=== PATIENT | male | born 1955 | race Hispanic/Latino ===

== ENCOUNTER → 2018-11-09 | Outpatient (CLI) | payer OTHER ==
[~2018-11-09] MED LIST: IOPAMIDOL 370 MG/ML 200 ML INFUS..BTL INJ ONE; SODIUM CHLORIDE 0.9% 50ML 50 ML ONE
[2018-11-09 14:23] LABS: BLOOD UREA NITROGEN 17 mg/dL (7-26); BUN/CREATININE RATIO 21 (6-25); CREATININE, SERUM 0.82 mg/dL (0.72-1.25); EST GLOMERULAR FILTRATION RATE > 60 ML/MIN (60-)
--- NOTE | 2018-11-09 16:17 | Diagnostic Imaging Report ---
Exam: CT abdomen and pelvis Clinical history: Neoplasm of the right kidney Technique: Helical images of the abdomen and pelvis were obtained before and after IV contrast administration using the renal mass protocol Findings: Mild bibasilar atelectasis is noted. There is no evidence of pleural effusion. The cardiac size is within normal limits. A small bleb is noted in the right lung base. The liver, spleen, pancreas, gallbladder, adrenal glands, and left kidney are unremarkable. In the upper pole right kidney, a 2.3 x 2.3 cm lesion is noted. It is exophytic and shows focal enhancement along the lateral wall. This is consistent with history of renal neoplasm. There is no evidence of lymphadenopathy or vascular extension of the lesion. The small and large bowels are normal in caliber without evidence of obstruction. Focal mild thickening of the left anterior lateral wall is visualized with associated stranding. Clinical correlation is recommended to rule out UTI. Otherwise, cystoscopy is recommended to rule out neoplasm. There is no evidence of lymphadenopathy or free fluid. The aorta and IVC are normal in caliber. No suspicious osteoblastic or lytic lesions are noted. Impression: 1. 2.3 cm right renal mass with asymmetric focal enhancement of the lateral wall. This is worrisome for neoplasm. 2. Mild asymmetrical thickening of the left anterior bladder wall. Associated stranding is also noted. This may represent focal inflammatory changes, however, neoplasm cannot be excluded. Signed by: Dr. Ronan Ibrahim MD on 11/09/2018 4:14 PM
== END ==
LOC: CT 13:29
PROVIDERS: ATTEND Urology
DX: C64.1 Malignant neoplasm of right kidney, except renal pelvis (principal)
CPT/HCPCS: 36415; 74178; 82565; 84520; Q9967

== ENCOUNTER → 2018-12-15 | Day surgery (SDC) | payer OTHER ==
[2018-12-13 13:30] LABS: BASOPHILS % 0.4 % (0.0-1.0); EOSINOPHILS # (AUTO) 0.2 (0.0-0.4); EOSINOPHILS % 3.5 % (0.0-6.0); HEMATOCRIT 41.3 % (38.2-49.6); LYMPHOCYTES # (AUTO) 0.8 (1.0-3.2); MEAN CORPUSCULAR HEMOGLOBIN 29.2 pg (28-32); MEAN CORPUSCULAR HGB CONC 33.9 g/dL (31-35); MONOCYTES # (AUTO) 0.6 (0.2-0.8); MONOCYTES % 9.3 % (4.4-11.3); NEUTROPHILS # (AUTO) 5.1 (2.1-6.9); NEUTROPHILS % 75.4 % (38.7-80.0); PLATELET COUNT 260 x10e3/uL (140-360); RED CELL DISTRIBUTION WIDTH 13.1 % (11.7-14.4)
[2018-12-13 13:52] LABS: ALANINE AMINOTRANSFERASE 24 IU/L (0-55); ALBUMIN 3.6 g/dL (3.5-5.0); ALKALINE PHOSPHATASE 71 IU/L (40-150); ANION GAP 13.1 mmol/L (8-16); BLOOD UREA NITROGEN 22 mg/dL (7-26); BUN/CREATININE RATIO 28 (6-25); CALCIUM 9.8 mg/dL (8.4-10.2); CARBON DIOXIDE 25 mmol/L (22-29); CHLORIDE 106 mmol/L (98-107); EST GLOMERULAR FILTRATION RATE > 60 ML/MIN (60-); GLUCOSE 97 mg/dL (74-118); POTASSIUM 4.1 mmol/L (3.5-5.1); SODIUM 140 mmol/L (136-145)
[~2018-12-15] MED LIST changes: +AMLODIPINE BESYL5 MG PO; +ATORVASTATIN CA20 MG PO; +B&O 60MG R/S 60 MG SUPP PR ONE; +CEFTRIAXONE SOD 1 GM/NS 50 ML 50 ML IV ONE; +CENTRUM SILVER1 EAC3 PO; +DEXAMETHASONE SOD PHOS INJ 4 MG/ML VIAL ONE; +FENTANYL CITRATE/PF 100MCG/2 ML INJ ONE; +IOPAMIDOL 300MG/ML 50ML INFUS..BTL IV ONE; -IOPAMIDOL 370 MG/ML 200 ML INFUS..BTL INJ ONE; +LIDOCAINE HCL 2% LOCAL INJ 5 ML SDV VIAL INJ ONE; +LOSARTAN POTAS100 MG PO; +MIDAZOLAM HCL 2 MG/2 ML VIAL ONE; +ONDANSETRON HCL INJ 2MG/ML 2ML 2 MG/ML VIAL ONE; +PROPOFOL IV EMULSION 10 MG/ML 20 ML VIAL ONE; +SEVOFLURANE INHAL SOLN 250 ML PEN BTL ONE; -SODIUM CHLORIDE 0.9% 50ML 50 ML ONE
--- OUTSIDE RECORDS SUMMARY | 2018-12-15 09:34 | XMS REPORT ---
Author [facility] Address Unknown Phone Unavailable Care Team Providers Care Addressing Machine Operator Name Role Phone ADONIS NIELSEN Unavailable Unavailable Problems This patient has no known problems. Allergies, Adverse Reactions, Alerts This patient has no known allergies or adverse reactions. Medications This patient has no known medications. Results Test Description Test Time Test Comments Text Results Atomic Results Result Comments CT ABDOMEN/PELVIS WOW 2018-11-09 16:08:00 [facility] [address] [place] [address] Patient Name: JE HAQUE MR #: [id number] : 1955 Age/Sex: 62/M Req #: [id number] Adm Physician: Ordered by: ADONIS NIELSEN MD Report #: [id number] Location: CT Room/Bed: Procedure: [id number] CT/CT ABDOMEN/PELVIS WOW Exam Date: 11/09/18 Exam Time: 1503 REPORT STATUS: Signed Exam: CT abdomen and pelvis Clinical history: Neop lasm of the right kidney Technique: Helical images of the abdomen and pelvis were obtained before and after IV contrast administration using the renal mass protocol Findings: Mild bibasilar atelectasis is noted. There is no evidence of pleural effusion. The cardiac size is within normal limits. A small bleb is noted in the right lung base. The liver, spleen, pancreas, gallbladder, adrenal glands, and left kidney are unremarkable. In the upper pole right kidney, a 2.3 x 2.3 cm lesion is noted. It is exophytic and shows focal enhancement along the lateral wall. This is consistent with history of renal neoplasm. There is no evidence of lymphadenopathy or vascular extension of the lesion. The small and large bowels are normal in caliber without evidence of obstruction. Focal mild thickening of the left anterior lateral wall is visualized with associated stranding. Clinical correlation is recommended to rule out UTI. Otherwise, cystoscopy is recommended to rule out neoplasm. There is no evidence of lymphadenopathy or free fluid. The aorta and IVC are normal in caliber. No suspicious osteoblastic or lytic lesions are noted. Impression: 1. 2.3 cm right renal mass with asymmetric focal enhancement of the lateral wall. This is worrisome for neoplasm. 2. Mild asymmetrical thickening of the left anterior bladder wall. Associated st randing is also noted. This may represent focal inflammatory changes, however, neoplasm cannot be excluded. Signed by: Dr. Ronan Ibrahim MD on 11/09/2018 4:14 PM Dictated By: RAMILA IBRAHIM MD 1615 Transcribed By: PÉREZ on 11/09/18 1614 COPY TO: ADONIS NIELSEN MD
[2018-12-15 13:13] VITALS: BP 149/77
--- NOTE | 2019-02-25 06:23 | Operative Report ---
DATE OF PROCEDURE: 12/15/2018 SURGEON: Sher Dumont MD PREOPERATIVE DIAGNOSES: 1. Bladder cancer. 2. Hematuria. POSTOPERATIVE DIAGNOSES: 1. Bladder cancer. 2. Hematuria. 3. Urethral stricture disease. OPERATION PERFORMED: 1. Cystourethroscopy with calibration and dilation of urethral stricture disease (separate procedure performed for the stricture disease). 2. Cystourethroscopy with bilateral ureteral catheterization and retrograde ureteropyelography (separate procedure performed for the hematuria). 3. Interpretation of retrograde ureteropyelography. 4. Supervision of fluoroscopy, no radiologist present. 5. Cystourethroscopy with directed bladder biopsies of the posterior and right lateral bladder lesions (separate procedure performed for the bladder cancer). ANESTHESIA: General. COMPLICATIONS: None. CLINICAL SUMMARY: Puneet Guadalupe is a complicated 62-year-old man. He underwent transurethral resection of prostate in September 2015. The patient subsequently was diagnosed abroad with transitional cell carcinoma. He underwent transurethral resection of bladder tumor in 2017. Upon presentation to the [facility], the patient without any urological input underwent radiotherapy and chemotherapy for his bladder cancer. He also without any urological input was diagnosed as having renal cell carcinoma of the right renal mass, underwent cryotherapy by Interventional Radiology in June 2018. Eventually, the patient was sent for urological re-evaluation following all these interventions without any urological input. The patient is brought to the operating room for the above procedures. He is aware of the risks of bleeding, infection, injury to adjacent structures, need for additional procedures and elected to proceed. OPERATIVE PROCEDURE IN DETAIL: Informed consent verified. Puneet Guadalupe was properly identified, taken to the operating room, placed on the cystoscopy table in supine position. Anesthesia was uneventfully begun. The patient was then carefully gently repositioned in the dorsal lithotomy position with all pressure points well padded. His genitalia were prepared and draped in usual sterile fashion. A 21-Haitian cystoscope sheath with visual obturator in place was atraumatically inserted into the patient's urethra. It was guided into the urethral meatus and just beyond the urethral meatus, at the fossa navicularis, there was some narrowing. This stricture was dilated to 21-Haitian in size utilizing visual obturator and cystoscope sheath. Urethra was otherwise unremarkable. Sphincteric region was normal. Prostate bed was significant for transurethral resection of the prostate with some caving in of residual prostatic tissue causing mild obstruction especially at the apical region. The bladder neck was opened, went to the patient's bladder and drained it. Panendoscopy of the bladder revealed some erythema at the posterior wall as well as at the right lateral wall, thus we utilized cold cup biopsy forceps to biopsy these regions and all spots of erythema that we saw on the bladder were then fulgurated with a Bugbee electrode. An 8-Haitian catheter was used to cannulate each ureter and retrograde ureteral pyelograms were performed. Interpretation of retrograde ureteropyelography. Contrast was instilled in retrograde fashion bilaterally. There were no tumors. There were no stones. There were no diverticula. I really could not appreciate well the region of the right renal lesion. This underwent cryotherapy as this did not seem to affect the collecting system significantly. The patient's bladder was drained. Cystoscope was withdrawn. A belladonna and opium suppository was placed and revealing 40 g prostate that was smooth, nonfluctuant without any nodules. The patient was then uneventfully reversed from anesthesia and taken to recovery room in stable condition. There were no complications of the procedure. He tolerated the procedure well. Plans will be to schedule a CT scan of the abdomen and pelvis with and without contrast per renal mass protocol and in addition to that, proceed with CT-guided biopsy of the right renal mass. The patient and his family are concerned that there may be residual cancer following this cryotherapy procedure. Ongoing urological followup is a must. Sher Dumont MD [place]/MODL /[id number]
== END | disposition home or self-care (01) ==
LOC: OR 09:28
PROVIDERS: ATTEND Urology
DX: C67.9 Malignant neoplasm of bladder, unspecified (principal); Z01.812 Encounter for preprocedural laboratory examination; I10 Essential (primary) hypertension; E78.5 Hyperlipidemia, unspecified; N35.911 Unspecified urethral stricture, male, meatal; N39.41 Urge incontinence; Z87.891 Personal history of nicotine dependence; Z80.42 Family history of malignant neoplasm of prostate
CPT/HCPCS: 36415; 52281; 74420; 80053; 85025; 88305; C1758; J0696; J1100; J2001; J2250; J2405; J2704; J3010; Q9967

== ENCOUNTER → 2019-02-27 | Outpatient (CLI) | payer OTHER ==
[~2019-02-27] MED LIST changes: -B&O 60MG R/S 60 MG SUPP PR ONE; -CEFTRIAXONE SOD 1 GM/NS 50 ML 50 ML IV ONE; +COLACE100 MG PO; -DEXAMETHASONE SOD PHOS INJ 4 MG/ML VIAL ONE; +DITROPAN XL5 MG PO; -IOPAMIDOL 300MG/ML 50ML INFUS..BTL IV ONE; +LIDOCAINE HCL 1% LOCAL INJ 20 ML VIAL ONE; -LIDOCAINE HCL 2% LOCAL INJ 5 ML SDV VIAL INJ ONE; +OMEPRAZOLE40 MG PO; -ONDANSETRON HCL INJ 2MG/ML 2ML 2 MG/ML VIAL ONE; -PROPOFOL IV EMULSION 10 MG/ML 20 ML VIAL ONE; -SEVOFLURANE INHAL SOLN 250 ML PEN BTL ONE; +TYLENOL WITH C1 EACH PO
[2019-02-27 11:39] LABS: INR 0.92; PROTHROMBIN TIME 12.9 seconds (11.9-14.5)
[2019-02-27 11:40] LABS: PARTIAL THROMBOPLASTIN TIME 35.4 seconds (23.8-35.5)
[2019-02-27 12:02] LABS: HEMATOCRIT 40.8 % (38.2-49.6); HEMOGLOBIN 13.6 g/dL (14.0-18.0)
--- NOTE | 2019-02-27 14:39 | Diagnostic Imaging Report ---
CT guided biopsy History: Right renal mass status post prior biopsy and ablation/treatment at outside institution. Comparison: CT from 11/09/2018 Sedation: Versed 1 mg and fentanyl 50 mcg was given intravenously for conscious sedation. Vital signs were monitored throughout the procedure by a nurse, and remained stable. Physician intra-service time was 60 minutes. Technique: Serial axial imaging was performed without intravenous contrast as per departmental protocol. Multiplanar images are reconstructed and reviewed when indicated. This CT examination is performed using one or more of the following dose reduction techniques: Automated exposure control, adjustment of the mA and /or kV according to patient size, and/or use of iterative reconstruction technique. Written informed consent was obtained after discussing risks, benefits, and alternatives of the procedure with the patient. Patent was brought to the CT scanner and placed in prone position. Initial CT images demonstrate exophytic mass identified arising off the superior pole the right kidney. This lesion was targeted for biopsy. The right flank was prepped was prepped and draped in sterile fashion. 1% lidocaine was used for local anesthesia. Using CT guidance, a 19-gauge introducer needle was advanced to the lateral wall/margin of the right renal lesion where previous enhancement was noted. From this location 3 22-gauge fine-needle aspiration samples and 4 20-gauge core biopsy samples were obtained and collected by the cytopathology department directly. The introducer needle was removed and tract embolized with Gelfoam slurry. A sterile dressing was applied. Post biopsy images demonstrate no evidence of hematoma, pneumothorax, or other complication. Impression: Technically successful CT guided biopsy of right renal lesion as detailed above Signed by: Dr. Lavon Benitez MD on 02/27/2019 2:35 PM
== END ==
LOC: CT 09:48
PROVIDERS: ATTEND Urology
DX: C64.1 Malignant neoplasm of right kidney, except renal pelvis (principal)
CPT/HCPCS: 10009; 36415; 50200; 85014; 85018; 85049; 85610; 85730; 88172; 88173; 88305; J2001; J2250; J3010; 99152; 99153

== ENCOUNTER 2019-03-26 12:46 | Inpatient (IN) | payer OTHER ==
[2019-03-22 12:17] LABS: BASOPHILS % 0.5 % (0.0-1.0); EOSINOPHILS # (AUTO) 0.2 (0.0-0.4); EOSINOPHILS % 3.8 % (0.0-6.0); HEMATOCRIT 40.5 % (38.2-49.6); HEMOGLOBIN 13.5 g/dL (14.0-18.0); LYMPHOCYTES # (AUTO) 0.9 (1.0-3.2); LYMPHOCYTES % 14.5 % (18.0-39.1); MEAN CORPUSCULAR HEMOGLOBIN 28.9 pg (28-32); MEAN CORPUSCULAR HGB CONC 33.3 g/dL (31-35); MEAN CORPUSCULAR VOLUME 86.7 fL (81-99); MONOCYTES # (AUTO) 0.7 (0.2-0.8); MONOCYTES % 11.4 % (4.4-11.3); NEUTROPHILS # (AUTO) 4.2 (2.1-6.9); NEUTROPHILS % 69.3 % (38.7-80.0); PLATELET COUNT 236 x10e3/uL (140-360); RED BLOOD COUNT 4.67 x10e6/uL (4.3-5.7); RED CELL DISTRIBUTION WIDTH 13.4 % (11.7-14.4)
[2019-03-22 12:41] LABS: ALANINE AMINOTRANSFERASE 34 IU/L (0-55); ALBUMIN 3.8 g/dL (3.5-5.0); ALBUMIN/GLOBULIN RATIO 1.2 (0.8-2.0); ALKALINE PHOSPHATASE 79 IU/L (40-150); ANION GAP 12.4 mmol/L (8-16); BLOOD UREA NITROGEN 21 mg/dL (7-26); BUN/CREATININE RATIO 26 (6-25); CALCIUM 9.3 mg/dL (8.4-10.2); CARBON DIOXIDE 24 mmol/L (22-29); CHLORIDE 107 mmol/L (98-107); CREATININE, SERUM 0.81 mg/dL (0.72-1.25); EST GLOMERULAR FILTRATION RATE > 60 ML/MIN (60-); GLUCOSE 108 mg/dL (74-118); POTASSIUM 4.4 mmol/L (3.5-5.1); SODIUM 139 mmol/L (136-145)
--- NOTE | 2019-03-22 13:18 | Diagnostic Imaging Report ---
EXAMINATION: CHEST 2 VIEWS INDICATION: Pre-operative COMPARISON: None FINDINGS: LINES/TUBES:Right chest port terminates in the SVC. LUNGS:The lungs are well-inflated. No focal consolidation or pulmonary edema. 9 mm round opacity overlying the left lateral midlung may represent nipple shadow however appears asymmetric relative to the right. PLEURA:No pleural effusion or pneumothorax. MEDIASTINUM:The cardiomediastinal silhouette appears normal in size and shape. BONES/SOFT TISSUES:No acute osseous injury. ABDOMEN:No free air under the diaphragm. IMPRESSION: No focal pneumonia or pulmonary edema. 9 mm round opacity overlying the left lateral midlung may represent nipple shadow however appears asymmetric relative to the right. If there is concern for pulmonary nodule, repeat chest radiograph with nipple markers can be performed. Signed by: Basim Rebolledo MD on 03/22/2019 1:15 PM
[~2019-03-26] VITALS: Ht 182.9 cm; Wt 99.3 kg
[~2019-03-26 12:46] MED LIST changes: -COLACE100 MG PO; -FENTANYL CITRATE/PF 100MCG/2 ML INJ ONE; -LIDOCAINE HCL 1% LOCAL INJ 20 ML VIAL ONE; -MIDAZOLAM HCL 2 MG/2 ML VIAL ONE; -TYLENOL WITH C1 EACH PO
[2019-03-26] MEDS ORDERED: MANNITOL 25% 12.5GM/50ML 50 ML ONE (12:53)
[2019-03-26] MEDS ORDERED: MICROFIBRILLER COLLAGEN HEMOSTAT 1 GM POWDER TP ONE (12:57)
[2019-03-26] MEDS ORDERED: CEFAZOLIN SOD 1 GM/NS 50ML 100 ML IV ONE ×2 (13:20→21:36)
--- NOTE | 2019-03-26 14:30 | Diagnostic Imaging Report ---
EXAMINATION: CHEST 2 VIEWS INDICATION: Pre-operative COMPARISON: Chest radiograph of 02/27/2019 FINDINGS: LINES/TUBES:Right chest port terminates in the SVC. LUNGS:The lungs are well-inflated. 10 mm left lower lobe pulmonary nodule. No focal pneumonia or edema. PLEURA:No pleural effusion or pneumothorax. MEDIASTINUM:The cardiomediastinal silhouette appears normal in size and shape. BONES/SOFT TISSUES:No acute osseous injury. ABDOMEN:No free air under the diaphragm. IMPRESSION: No focal pneumonia or edema. 10 mm left lower lobe pulmonary nodule. RECOMMENDATIONS: Chest CT for further evaluation of pulmonary nodule. Signed by: Basim Rebolledo MD on 03/26/2019 2:27 PM
[2019-03-26] MEDS ORDERED: NALOXONE HCL INJ 0.4 MG/ML AMP IV PRN ×2 (15:45→18:45)
[2019-03-26] MEDS ORDERED: SOD CHL 0.45%/POT CHL 20MEQ 1,000 ML IV SCH (15:45)
[2019-03-26] MEDS ORDERED: MORPHINE SULFATE 1 MG/ML 30ML PCA IV PRN ×2 (15:45→18:45)
[2019-03-26] MEDS ORDERED: DIPHENHYDRAMINE HCL INJ 50 MG/ML VIAL IM PRN ×2 (15:45→18:45)
[2019-03-26] MEDS ORDERED: ONDANSETRON HCL INJ 2MG/ML 2ML 2 MG/ML VIAL IV PRN ×2 (15:45→18:45)
[2019-03-26] MEDS ORDERED: SEVOFLURANE INHAL SOLN 250 ML PEN BTL ONE (17:31)
[2019-03-26] MEDS ORDERED: ONDANSETRON HCL INJ 2MG/ML 2ML 2 MG/ML VIAL ONE (17:31)
[2019-03-26] MEDS ORDERED: EPHEDRINE SULFATE INJ 50 MG/ML VIAL ONE (17:31)
[2019-03-26] MEDS ORDERED: DEXAMETHASONE SOD PHOS INJ 4 MG/ML VIAL ONE (17:31)
[2019-03-26] MEDS ORDERED: ROCURONIUM BROMIDE 10 MG/ML 5ML VIAL ONE (17:31)
[2019-03-26] MEDS ORDERED: LIDOCAINE HCL 2% LOCAL INJ 5 ML SDV VIAL INJ ONE (17:31)
[2019-03-26] MEDS ORDERED: PROPOFOL IV EMULSION 10 MG/ML 20 ML VIAL ONE (17:31)
[2019-03-26] MEDS ORDERED: FENTANYL CITRATE/PF 100MCG/2 ML INJ ONE (17:53)
[2019-03-26] MEDS ORDERED: MORPHINE SULFATE INJ 10 MG/ML ONE (17:53)
[2019-03-26] MEDS: ACETAMINOPHEN 1000 MG/100 ML IV SCH (18:00)
[2019-03-26] MEDS ORDERED: HYDROMORPHONE 1MG/1ML INJ ONE ×2 (18:59→19:44)
--- NOTE | 2019-03-26 19:08 | Diagnostic Imaging Report ---
EXAMINATION: CHEST SINGLE (PORTABLE) INDICATION: Chest tube. Kidney cancer. Post surgery ^R/O PTX COMPARISON: March 26, 2019 earlier the same day. FINDINGS: LINES/TUBES: Right chest tube with distal tip over the superior right chest. Right chest port terminates in the SVC. LUNGS:The lungs are well-inflated. 10 mm left lower lobe pulmonary nodule. No focal pneumonia or edema. PLEURA:No pleural effusion or pneumothorax. MEDIASTINUM:The cardiomediastinal silhouette appears normal in size and shape. BONES/SOFT TISSUES:No acute osseous injury. ABDOMEN:No free air under the diaphragm. IMPRESSION: Right chest tube with distal tip over the superior right chest. No pneumothorax is seen. No focal pneumonia or edema. 10 mm left lower lobe pulmonary nodule. RECOMMENDATIONS: Chest CT for further evaluation of pulmonary nodule. Signed by: Dr. Jonas Maxwell M.D. on 03/26/2019 7:04 PM
[2019-03-26 19:25] LABS: BASOPHILS # (AUTO) 0.1 (0.0-0.1); BASOPHILS % 0.3 % (0.0-1.0); EOSINOPHILS % 0.1 % (0.0-6.0); HEMATOCRIT 39.6 % (38.2-49.6); HEMOGLOBIN 12.9 g/dL (14.0-18.0); LYMPHOCYTES # (AUTO) 0.9 (1.0-3.2); LYMPHOCYTES % 5.5 % (18.0-39.1); MEAN CORPUSCULAR HGB CONC 32.6 g/dL (31-35); MONOCYTES # (AUTO) 0.6 (0.2-0.8); MONOCYTES % 3.7 % (4.4-11.3); NEUTROPHILS # (AUTO) 14.5 (2.1-6.9); PLATELET COUNT 224 x10e3/uL (140-360); RED BLOOD COUNT 4.45 x10e6/uL (4.3-5.7); RED CELL DISTRIBUTION WIDTH 13.2 % (11.7-14.4)
[2019-03-26 19:40] LABS: ANION GAP 15.5 mmol/L (8-16); BLOOD UREA NITROGEN 14 mg/dL (7-26); BUN/CREATININE RATIO 15 (6-25); CALCIUM 8.1 mg/dL (8.4-10.2); CARBON DIOXIDE 20 mmol/L (22-29); CHLORIDE 105 mmol/L (98-107); CREATININE, SERUM 0.93 mg/dL (0.72-1.25); EST GLOMERULAR FILTRATION RATE > 60 ML/MIN (60-); GLUCOSE 148 mg/dL (74-118); POTASSIUM 3.5 mmol/L (3.5-5.1); SODIUM 137 mmol/L (136-145)
[2019-03-26 20:00] VITALS: BP 113/70
[2019-03-26 21:00] VITALS: BP 117/62
[2019-03-26] MEDS ORDERED: ACETAMINOPHEN 1000 MG/100 ML 200 ML IV ONE (21:31)
[2019-03-26] MEDS ORDERED: PIPER-TAZ 3.375 GM 100 ML ONE (21:36)
[2019-03-26] MEDS: PIPER-TAZ 3.375 GM 50 ML IV SCH (21:43)
[2019-03-26] MEDS: CEFAZOLIN SOD 1 GM/NS 50ML 50 ML IV SCH (21:43)
[2019-03-26 22:00] VITALS: BP 117/67
[2019-03-26] MEDS: D5.45%NS/KCL 20MEQ 1,000 ML IV SCH (22:20)
[2019-03-26] MEDS: HYDROMORPHONE 1MG/1ML INJ IV PRN (22:27)
[2019-03-26 23:00] VITALS: BP 115/61
[2019-03-27] VITALS (22 sets, daily range): BP systolic 101–143; BP diastolic 54–115
[2019-03-27] MEDS ORDERED: ACETAMINOPHEN 1000 MG/100 ML IV SCH
[2019-03-27] MEDS: ACETAMINOPHEN 1000 MG/100 ML IV SCH ×2 (00:26→06:02)
[2019-03-27] MEDS: HYDROMORPHONE 1MG/1ML INJ IV PRN ×2 (02:53→22:07)
[2019-03-27] MEDS: CEFAZOLIN SOD 1 GM/NS 50ML 50 ML IV SCH ×3 (05:15→22:03)
[2019-03-27] MEDS: PIPER-TAZ 3.375 GM 50 ML IV SCH ×3 (05:15→22:03)
[2019-03-27 05:31] LABS: EOSINOPHILS # (AUTO) 0.2 (0.0-0.4); HEMATOCRIT 35.5 % (38.2-49.6); HEMOGLOBIN 11.5 g/dL (14.0-18.0); LYMPHOCYTES # (AUTO) 0.3 (1.0-3.2); MEAN CORPUSCULAR HEMOGLOBIN 28.8 pg (28-32); MEAN CORPUSCULAR HGB CONC 32.4 g/dL (31-35); MEAN CORPUSCULAR VOLUME 88.8 fL (81-99); MONOCYTES # (AUTO) 0.6 (0.2-0.8); MONOCYTES % 5.8 % (4.4-11.3); NEUTROPHILS # (AUTO) 9.1 (2.1-6.9); NEUTROPHILS % 88.9 % (38.7-80.0); PLATELET COUNT 199 x10e3/uL (140-360); RED CELL DISTRIBUTION WIDTH 13.2 % (11.7-14.4)
[2019-03-27 05:50] LABS: BLOOD UREA NITROGEN 16 mg/dL (7-26); BUN/CREATININE RATIO 16 (6-25); CALCIUM 7.8 mg/dL (8.4-10.2); CARBON DIOXIDE 22 mmol/L (22-29); CHLORIDE 107 mmol/L (98-107); EST GLOMERULAR FILTRATION RATE > 60 ML/MIN (60-); GLUCOSE 188 mg/dL (74-118); SODIUM 138 mmol/L (136-145)
[2019-03-27] MEDS: D5.45%NS/KCL 20MEQ 1,000 ML IV SCH (06:04)
--- NOTE | 2019-03-27 06:36 | Diagnostic Imaging Report ---
Examination: Single AP view of the chest. COMPARISON: AP chest 03/26/2019 INDICATION: Chest tube, kidney cancer IMPRESSION: 1. Lines and Tubes: Stable right-sided chest tube with distal tip projecting in the right hemithorax. Stable right Port-A-Cath, with distal tip projecting in the distal SVC. 2. Lungs are well-inflated. Stable 1.0 cm pulmonary nodule in the left lung. No consolidation or effusion..No pneumothorax is visualized. 3. Cardiomediastinal silhouette is normal. Pulmonary vasculature is normal. 4. No acute bony abnormalities. Signed by: Dr. Vazquez Davis M.D. on 03/27/2019 6:33 AM
[2019-03-27 08:03] LABS: EOSINOPHILS % (MANUAL) 2 % (0-7); LYMPHOCYTES % (MANUAL) 9 % (19-48); MONOCYTES % (MANUAL) 4 % (3.4-9.0); NEUTROPHILS % (MANUAL) 85 % (40-74); PLATELET ESTIMATE ADEQUATE; PLATELET MORPHOLOGY COMMENT NORMAL; RBC MORPHOLOGY COMMENT NORMAL
[2019-03-27] MEDS ORDERED: ACETAMINOPHEN 1000 MG/100 ML IV PRN (09:15)
[2019-03-27] MEDS ORDERED: ONDANSETRON HCL INJ 2MG/ML 2ML 2 MG/ML VIAL IV PRN (09:15)
[2019-03-27] MEDS: MORPHINE SULFATE 1 MG/ML 30ML PCA IV PRN (10:11)
--- NOTE | 2019-03-27 12:14 | History and Physical ---
CHIEF COMPLAINT: Status post right partial nephrectomy with right adrenalectomy and chest tube with right thoracoabdominal entry. SUMMARY: The patient is a 63-year-old male with right kidney cancer. The patient has baseline hypertension. He is stable. He is now status post right partial nephrectomy with right adrenalectomy. The patient has a chest tube in place on the right. He is stable otherwise. He has pain control with FARM DEMONSTRATOR. At baseline, the patient has hypertension and reflux. He is comfortable at this time. PAST MEDICAL HISTORY: Hypertension, reflux, and right kidney cancer. SOCIAL HISTORY: The patient does not smoke or use alcohol. No regular drugs. ALLERGIES: NO KNOWN ALLERGIES. HOME MEDICATIONS: Norvasc, Lipitor, losartan, omeprazole, and oxybutynin. PHYSICAL EXAMINATION: VITAL SIGNS: Temperature is 98, blood pressure 115/65, pulse rate 65, and respirations 18. GENERAL: The patient is in no acute distress. HEENT: Normocephalic and atraumatic. He is anicteric. NECK: Supple grossly. PULMONARY: Diminished breath sounds with right chest tube. CARDIOVASCULAR: Regular rate and rhythm. ABDOMEN: Status post surgical intervention partial right nephrectomy and right adrenalectomy. NEUROLOGIC: No focal deficit. Moving all extremities. LABORATORY DATA: Sodium is 138, potassium 5, chloride 107, bicarb 22, BUN 16, creatinine 1.0, and glucose is 188. WBC is 10, hemoglobin 11.5, hematocrit 35.5, and platelets is 199. IMPRESSION: 1. Status post right partial nephrectomy and also right adrenalectomy. 2. Kidney cancer reason for the above surgical intervention. 3. Baseline hypertension. 4. Dyslipidemia. 5. Reflux. 6. Overactive urinary bladder. PLAN: Continue with current postoperative care. Keep the patient n.p.o. for now. IV fluid support. Chest tube management. Repeat lab work. SCD and incentive spirometry. We will monitor the patient closely. We will hold off some of the patient's home medication until the patient is starting on clear liquid diet. MD LOUIE Barker/ANASTACIOL /[id number]
[2019-03-27] MEDS: SODIUM CHLORIDE 0.9% 1000ML 1,000 ML IV SCH (15:32)
[2019-03-27] MEDS ORDERED: PIPER-TAZ 3.375 GM 50 ML ONE (15:34)
--- NOTE | 2019-03-27 16:25 | Consultation ---
DATE OF CONSULTATION: Pulmonary Consultation REASON FOR CONSULT: Chest tube management. HISTORY OF PRESENT ILLNESS: Mr. Guadalupe is a 63-year-old male, underwent thoracoabdominal surgery for right kidney cancer. Postoperatively, the patient has a chest tube. He has been a smoker for 40 years, quit smoking 6 years ago. He denies any chest pain or shortness of breath. There is no air leak in the chest tube. REVIEW OF SYSTEMS: GENERAL: Denies any fever or chills. HEAD: Denies any head trauma. ENT: Denies any earaches. CVS: Chest discomfort. RESPIRATORY: No shortness of breath. The rest of the review of systems are negative except as in HPI. PAST MEDICAL HISTORY: Hypertension. FAMILY AND SOCIAL HISTORY: Ex-smoker, quit smoking 6 years ago. PHYSICAL EXAMINATION: VITAL SIGNS: Temperature 97.6, pulse of 65, blood pressure 110/75, and respiratory rate of 18. CHEST: Clear to auscultation bilaterally. No wheezing. The patient has right-sided chest tube. ABDOMEN: Soft and nontender. EXTREMITIES: No pedal edema. LABORATORY DATA: Reviewed. Chest x-ray done today showing right-sided chest tube with distal tip projecting and right hemithorax. Lungs are No pneumothorax. ASSESSMENT/PLAN: Mr. Guadalupe is a 63-year-old male, underwent surgery for right kidney cancer. We will do a chest x-ray in a.m. after clamping the tube. If there is no pneumothorax, the patient's chest tube will be discontinued. MD YAMINI Wolf/SANTOSH /[id number]
--- NOTE | 2019-03-27 17:22 | NUR ---
Nutrition Screen Note RD Recommendation for Physician: -Recommend advancing diet when medically appropriate Plan of Care: RD following, monitoring for tolerance and adequacy Nutrition reason for involvement: Nutrition Risk Trigger MST 4 Primary Diagnose(s): kidney cancer PMH: Hypertension, reflux, and right kidney cancer. Ht: 72 in Wt:227 lb BMI: 30.8 kg/m2 IBW:[address] Assessment: (03/27/2019) Chart reviewed. Labs and meds reviewed. Pt is a 63 year old male admitted with kidney cancer. Pt had a right partial nephrectomy with right adrenalectomy. Pt is currently NPO. Prior to admission, pt reports eating most of his meals and mentioned he usually weighs 220 lbs. Pt currently has a weight of 227 lbs in chart. No N/V or chewing/swallowing issues. Will continue to monitor. Current Diet: NPO Malnutrition Evaluation (03/27/2019) The patient does not meet criteria for a specified degree of malnutrition at this time. Will re-evaluate at follow-up as appropriate. Diet Education Needs Assessment: Diet education not indicated. Nutrition Care Level: low Signed: Yue Ye, RD, LD
--- NOTE | 2019-03-27 17:48 | Diagnostic Imaging Report ---
EXAMINATION: CHEST SINGLE (PORTABLE) INDICATION: Chest tube clamped. ^Chest tube clamped ^[id number] ^[id number] COMPARISON: None FINDINGS: See impression IMPRESSION: 1. Lines and Tubes: Slightly kinked right-sided chest tube with distal tip projecting in the right hemithorax. Stable right Port-A-Cath, with distal tip projecting over the distal SVC. 2. Lungs are well-inflated. Stable 1.0 cm pulmonary nodule in the left lung. No consolidation or effusion..No pneumothorax is visualized. 3. Cardiomediastinal silhouette is normal. Pulmonary vasculature is normal. 4. No acute bony abnormalities. Signed by: Dr. Jonas Maxwell M.D. on 03/27/2019 5:45 PM
[2019-03-28] VITALS (24 sets, daily range): BP systolic 119–163; BP diastolic 58–101
[2019-03-28] MEDS: SODIUM CHLORIDE 0.9% 1000ML 1,000 ML IV SCH ×3 (02:35→21:39)
[2019-03-28] MEDS: HYDROMORPHONE 1MG/1ML INJ IV PRN (02:36)
[2019-03-28] MEDS ORDERED: PIPER-TAZ 3.375 GM 50 ML ONE ×2 (05:40→16:58)
[2019-03-28 05:48] LABS: ANION GAP 12.1 mmol/L (8-16); BLOOD UREA NITROGEN 14 mg/dL (7-26); BUN/CREATININE RATIO 14 (6-25); CALCIUM 7.8 mg/dL (8.4-10.2); CARBON DIOXIDE 23 mmol/L (22-29); CHLORIDE 108 mmol/L (98-107); CREATININE, SERUM 0.97 mg/dL (0.72-1.25); EST GLOMERULAR FILTRATION RATE > 60 ML/MIN (60-); GLUCOSE 101 mg/dL (74-118); POTASSIUM 4.1 mmol/L (3.5-5.1); SODIUM 139 mmol/L (136-145)
[2019-03-28] MEDS: PIPER-TAZ 3.375 GM 50 ML IV SCH ×3 (05:55→21:39)
[2019-03-28] MEDS: CEFAZOLIN SOD 1 GM/NS 50ML 50 ML IV SCH ×3 (05:55→21:39)
[2019-03-28 05:59] LABS: BASOPHILS % 0.1 % (0.0-1.0); EOSINOPHILS % 0.2 % (0.0-6.0); HEMATOCRIT 32.8 % (38.2-49.6); HEMOGLOBIN 10.6 g/dL (14.0-18.0); LYMPHOCYTES # (AUTO) 0.7 (1.0-3.2); LYMPHOCYTES % 7.2 % (18.0-39.1); MEAN CORPUSCULAR HGB CONC 32.3 g/dL (31-35); MEAN CORPUSCULAR VOLUME 89.9 fL (81-99); MONOCYTES # (AUTO) 0.7 (0.2-0.8); MONOCYTES % 7.3 % (4.4-11.3); NEUTROPHILS # (AUTO) 8.5 (2.1-6.9); NEUTROPHILS % 84.6 % (38.7-80.0); PLATELET COUNT 187 x10e3/uL (140-360); RED BLOOD COUNT 3.65 x10e6/uL (4.3-5.7); RED CELL DISTRIBUTION WIDTH 13.9 % (11.7-14.4)
--- NOTE | 2019-03-28 06:40 | Diagnostic Imaging Report ---
Examination: Single AP view of the chest. COMPARISON: Portable chest 03/27/2019 INDICATION: Kidney cancer, chest tube IMPRESSION: 1. Lines and Tubes: No interval change in right-sided chest tube with distal tip projecting in the right hemithorax. Stable right upper chest Port-A-Cath. 2. Lungs are grossly clear. No consolidation or effusion. Stable 1.0 cm nodular density in the lung. No pneumothorax is noted. 3. Cardiomediastinal silhouette is normal. Pulmonary vasculature is normal. 4. No acute bony abnormalities. Signed by: Dr. Vazquez Davis M.D. on 03/28/2019 6:37 AM
--- NOTE | 2019-03-28 09:42 | NUR ---
dr. mcdowell removed right chest tube at bedside. patient tolerated removal of chest tube well. room air. no desat. no decline in vital signs. pt comfortable at this time.
[2019-03-28] MEDS ORDERED: BISACODYL 10 MG SUPP PR ONE (14:00)
--- NOTE | 2019-03-28 14:31 | Diagnostic Imaging Report ---
EXAMINATION: CHEST SINGLE (PORTABLE) INDICATION: Chest tube removal COMPARISON: Chest radiograph 03/28/2019 FINDINGS: LINES/TUBES:Interval removal of right chest tube. Right chest port unchanged. EKG leads overlie the chest. LUNGS:The lungs are moderately inflated. No focal consolidation or pulmonary edema. Unchanged 9 mm left pulmonary nodule. PLEURA:No pleural effusion or pneumothorax. MEDIASTINUM:The cardiomediastinal silhouette appears normal in size and shape. BONES/SOFT TISSUES:No acute osseous injury. ABDOMEN:No free air under the diaphragm. IMPRESSION: No pneumothorax status post interval right chest tube removal. Otherwise, no significant interval change. Signed by: Basim Rebolledo MD on 03/28/2019 2:28 PM
--- NOTE | 2019-03-28 17:07 | NUR ---
patient ambulated to bathroom and chair in room. patient ambulated to obs nursing station back to icu stairwell twice before going back to room. he sat in chair after ambulation for 30minutes then to bed. pt requiring standby assist. ambulating independently gait is steady,. at bedside. no decline in vital signs noted during ambulation.
[2019-03-29] VITALS (13 sets, daily range): BP systolic 141–191; BP diastolic 64–88
[2019-03-29] MEDS: MORPHINE SULFATE 1 MG/ML 30ML PCA IV PRN (01:44)
[2019-03-29] MEDS: HYDROMORPHONE 1MG/1ML INJ IV PRN (01:45)
[2019-03-29 05:27] LABS: BASOPHILS % 0.4 % (0.0-1.0); EOSINOPHILS # (AUTO) 0.1 (0.0-0.4); EOSINOPHILS % 1.3 % (0.0-6.0); HEMATOCRIT 34.7 % (38.2-49.6); HEMOGLOBIN 11.3 g/dL (14.0-18.0); LYMPHOCYTES # (AUTO) 0.9 (1.0-3.2); LYMPHOCYTES % 9.5 % (18.0-39.1); MEAN CORPUSCULAR HEMOGLOBIN 28.5 pg (28-32); MEAN CORPUSCULAR HGB CONC 32.6 g/dL (31-35); MEAN CORPUSCULAR VOLUME 87.6 fL (81-99); MONOCYTES # (AUTO) 0.9 (0.2-0.8); MONOCYTES % 9.5 % (4.4-11.3); NEUTROPHILS # (AUTO) 7.5 (2.1-6.9); NEUTROPHILS % 78.8 % (38.7-80.0); PLATELET COUNT 195 x10e3/uL (140-360); RED BLOOD COUNT 3.96 x10e6/uL (4.3-5.7); RED CELL DISTRIBUTION WIDTH 13.6 % (11.7-14.4)
[2019-03-29] MEDS: CEFAZOLIN SOD 1 GM/NS 50ML 50 ML IV SCH ×3 (05:34→22:29)
[2019-03-29] MEDS: SODIUM CHLORIDE 0.9% 1000ML 1,000 ML IV SCH (05:34)
[2019-03-29] MEDS: PIPER-TAZ 3.375 GM 50 ML IV SCH ×4 (05:34→21:53)
[2019-03-29 05:45] LABS: ANION GAP 13.8 mmol/L (8-16); BLOOD UREA NITROGEN 10 mg/dL (7-26); BUN/CREATININE RATIO 11 (6-25); CALCIUM 8.6 mg/dL (8.4-10.2); CARBON DIOXIDE 24 mmol/L (22-29); CHLORIDE 105 mmol/L (98-107); CREATININE, SERUM 0.88 mg/dL (0.72-1.25); EST GLOMERULAR FILTRATION RATE > 60 ML/MIN (60-); GLUCOSE 92 mg/dL (74-118); POTASSIUM 3.8 mmol/L (3.5-5.1); SODIUM 139 mmol/L (136-145)
--- NOTE | 2019-03-29 05:53 | Diagnostic Imaging Report ---
Examination: Single AP view of the chest. COMPARISON: AP chest 03/28/2019 INDICATION: Chest tube removal IMPRESSION: 1. Lines and Tubes: Right upper chest Port-A-Cath is unchanged. 2. Lungs are well-inflated. Unchanged 9 mm left pulmonary nodule. Interval development of patchy right infrahilar opacity, likely reflecting atelectasis. No consolidation or effusion. 3. Cardiomediastinal silhouette is normal. Pulmonary vasculature is normal. 4. No acute bony abnormalities. Signed by: Dr. Vazquez Davis M.D. on 03/29/2019 5:52 AM
[2019-03-29] MEDS ORDERED: ACETAMINOPHEN/CODEINE 300MG - 30MG TAB PO PRN (08:30)
[2019-03-29] MEDS: BISACODYL 10 MG SUPP PR SCH ×4 (09:00→17:35)
[2019-03-29] MEDS: DOCUSATE SODIUM 100 MG CAP PO SCH ×3 (09:23→17:35)
--- NOTE | 2019-03-29 14:05 | NUR ---
Received patient transfer from ICU. Respiration even and unlabored without SOB. SAUL drain to right lower abdomen intact, in placed. right abdomen dick open to air, no bleeding , no signs of infection noted. Call light in reach.
--- NOTE | 2019-03-29 14:29 | Diagnostic Imaging Report ---
CT of the chest, without contrast, 03/29/2019. History: Prostate cancer, postop. Comparison: None available. Technique: Multidetector CT scanning of the chest was performed from the level of the apices to the upper abdomen without contrast. Coronal and sagittal multiplanar reformations were obtained. RADIATION DOSE: Total DLP: 545 mGy*cm Dose modulation, iterative reconstruction, and/or weight based adjustment of the mA/kV was utilized to reduce the radiation dose to as low as reasonably achievable. Discussion: Evaluation is limited without IV contrast. Chest: The heart, aorta, and pulmonary vessels are normal in size. There is no gross evidence of adenopathy. The thyroid is unremarkable. Calcified left hilar lymph nodes are present. Calcified granulomata is present in the left upper lobe. Mild scattered emphysema is noted. There is bilateral lower lobe subsegmental atelectasis. Trace left pleural effusion is noted. Limited evaluation of the upper abdomen shows normal adrenal glands. Bones and soft tissues: Subcutaneous air and fluid are present in the right lower chest and abdominal wall. Fluid and air are also present in the right retroperitoneum. Right subclavian Port-A-Cath is noted. IMPRESSION: 1. Granulomatous and mild emphysematous disease. No acute pulmonary abnormality. 2. Subcutaneous and retroperitoneal emphysema are noted, likely related to recent surgery. Signed by: Reese Forte on 03/29/2019 2:27 PM
--- NOTE | 2019-03-29 14:30 | NUR ---
Dr. Dumont ordered patient to start clear liquid diet and transfer to medical surgical floor. IV fluids, camera tuning engineer pump and avalos catheter ordered to be d/c. Dr. Dumont instructed RN to remove surigcal dressing and keep open to air. Place gauze only on SAUL site. RN did dressing change as per Dr Dumont's orders. Avalos dc at 1015. Pt voided shortly after removal and had a loose bowel movement (refused suppository due to having bowel movement). Pt tolerating clear liquid diet. Patient ambulating in hallway frequently. Dr. Bailey ordered CT of chest without contrast. Patient completed CT of chest. Patient transferred to medical surgical room 104. Patient did not appear to be in any distress during transfer. Report given to Virginia MELENDEZ.
--- NOTE | 2019-03-29 19:05 | NUR ---
Report given to material handler 2nd shift. Respiration even and unlabored without SOB. Call light in reach.
[2019-03-30] VITALS (7 sets, daily range): BP systolic 144–161; BP diastolic 71–92
[2019-03-30 06:04] LABS: BASOPHILS % 0.4 % (0.0-1.0); EOSINOPHILS # (AUTO) 0.2 (0.0-0.4); EOSINOPHILS % 3.1 % (0.0-6.0); HEMATOCRIT 36.8 % (38.2-49.6); HEMOGLOBIN 12.4 g/dL (14.0-18.0); LYMPHOCYTES # (AUTO) 0.6 (1.0-3.2); LYMPHOCYTES % 8.1 % (18.0-39.1); MEAN CORPUSCULAR HEMOGLOBIN 28.7 pg (28-32); MEAN CORPUSCULAR HGB CONC 33.7 g/dL (31-35); MEAN CORPUSCULAR VOLUME 85.2 fL (81-99); MONOCYTES # (AUTO) 0.8 (0.2-0.8); MONOCYTES % 10.1 % (4.4-11.3); NEUTROPHILS # (AUTO) 5.7 (2.1-6.9); NEUTROPHILS % 77.5 % (38.7-80.0); PLATELET COUNT 245 x10e3/uL (140-360); RED BLOOD COUNT 4.32 x10e6/uL (4.3-5.7); RED CELL DISTRIBUTION WIDTH 13.2 % (11.7-14.4)
[2019-03-30] MEDS: PIPER-TAZ 3.375 GM 50 ML IV SCH ×2 (06:13→15:00)
[2019-03-30] MEDS: CEFAZOLIN SOD 1 GM/NS 50ML 50 ML IV SCH ×2 (06:13→14:30)
[2019-03-30 06:19] LABS: ANION GAP 14.5 mmol/L (8-16); BLOOD UREA NITROGEN 10 mg/dL (7-26); BUN/CREATININE RATIO 12 (6-25); CALCIUM 9.7 mg/dL (8.4-10.2); CARBON DIOXIDE 25 mmol/L (22-29); CHLORIDE 104 mmol/L (98-107); CREATININE, SERUM 0.84 mg/dL (0.72-1.25); EST GLOMERULAR FILTRATION RATE > 60 ML/MIN (60-); GLUCOSE 102 mg/dL (74-118); POTASSIUM 3.5 mmol/L (3.5-5.1); SODIUM 140 mmol/L (136-145)
[2019-03-30] MEDS: BISACODYL 10 MG SUPP PR SCH ×2 (09:00→16:56)
[2019-03-30] MEDS ORDERED: PANTOPRAZOLE SOD 40 MG TABEC PO SCH (09:00)
[2019-03-30] MEDS: DOCUSATE SODIUM 100 MG CAP PO SCH ×2 (09:00→16:56)
[2019-03-30] MEDS ORDERED: NEBIVOLOL 10 MG TAB PO ONE (09:30)
--- NOTE | 2019-03-30 10:22 | NUR ---
MD NIELSEN INTO SEE PT, DISCUSSED POC, MD RUSSELL INTO SEE PT, DISCUSSED POC
--- NOTE | 2019-03-30 11:30 | NUR ---
SAUL REMOVED PER MD ORDER, PT TOLERATED WELL, PT EDUCATED TO CALL NURSE AFTER FINISHES LUNCH FOR ASSISTANCE INTO SHOWER, PT VERBALIZED UNDERSTANDING
--- NOTE | 2019-03-30 12:11 | NUR ---
SPOKE WITH MD ANTONIO, PT REFUSED AM DOSE OF BYSTOLIC, WANTS TO TAKE OWN DOSE OF [place], MD ANTONIO CLARIFIED PT IS TO TAKE BYSTOLIC, EDUCATED PT, PT TOOK DOSE OF BYSTOLIC AT THIS TIME, PT TOLERATED LUNCH TRAY AT THIS TIME, REQUEST TO NAP BEFORE GETTING IN SHOWER, CALL LIGHT WITHIN REACH
[2019-03-30] MEDS ORDERED: SODIUM CHLORIDE 0.9% 250ML 250 ML ONE (13:14)
[2019-03-30] MEDS ORDERED: TYLENOL WITH C1 EACH PO (18:20)
[2019-03-30] MEDS ORDERED: COLACE100 MG PO (18:21)
[2019-03-30] MEDS ORDERED: AMLODIPINE BESYLATE 10 MG TAB PO SCH (21:00)
[2019-03-31] MEDS ORDERED: NEBIVOLOL 10 MG TAB PO SCH (06:00)
--- NOTE | 2019-05-28 03:33 | Operative Report ---
DATE OF PROCEDURE: 03/26/2019 SURGEON: Sher Dumont MD PREOPERATIVE DIAGNOSES: 1. Right renal cell carcinoma status post prior percutaneous ablation by radiologist. 2. Adrenal tumor. 3. Intentional pneumothorax. OPERATIONS PERFORMED: 1. Thoracoabdominal exploration. 2. Complicated right upper pole partial nephrectomy made complicated by the patient's previous cryotherapy. 3. Right adrenalectomy. 4. Tube thoracostomy. EXTENSION WORK INSTRUCTOR: Dr. Guzmán. COMPLICATIONS: None. CLINICAL SUMMARY: Puneet Moise is a 63-year-old male with a complicated urological history. The patient on evaluation for bladder cancer was found to have a right renal lesion. Without consulting a urologist, the patient was referred to an interventional radiologist to perform the biopsy as well as percutaneous ablation. Followup examination once eventually part of my practice revealed that this renal lesion proved to be suspicious, biopsy revealed a viable renal cancer. The patient is brought for the above procedures. He is aware of the risks of bleeding, infection, injury to adjacent structures, incomplete cancer resection, recurrence, and he elected to proceed. OPERATIVE PROCEDURE IN DETAIL: Informed consent was verified. Puneet Moise was properly identified, taken to the operating room, placed on the operating table in supine position. Anesthesia was uneventfully begun. A Barnes catheter was placed. The patient was then repositioned in the modified flank position with all pressure points carefully well padded. His chest, abdomen, and back were prepared and draped in the usual sterile fashion. A right thoracoabdominal incision was then made. Through all layers of the chest and abdominal wall, we entered in the right thorax. The diaphragm was divided. Self-retaining retractor was utilized. We carefully dissected the kidney and surrounding structures. We isolated the renal artery and controlled it with a Rumel tourniquet. We then continued our dissection. The patient's dissection was difficult due to prior ablation therapy of this lesion. We were eventually through careful dissection and we were able to isolate the vena cava, the renal vein, the renal artery, the adrenal, and the upper pole of the kidney. The entire kidney was also mobilized. The adrenal appeared to have mass effect in it. We clamped the renal artery, carefully dissected out the upper pole of the right kidney including the adrenal. Hemostasis was achieved with 3-0 chromic suture for the inner portion of the kidney and collecting system. We then placed 2-0 chromic sutures through the capsule. We utilized hemostatic agent as well as Surgicel and tied this down. The artery was released. Hemostasis was perfect. The pathologist reported that she believed there were negative margins. Copious irrigation was performed. A chest tube was placed through a separate stab incision and secured to the skin with nylon suture. Therefore, the bladder flap was approximated with 2-0 Vicryl suture. A Francis drain was then placed through a separate stab incision and secured to the skin with nylon suture. The costal margin was approximated with a heavy Ethibond suture. The abdomen and chest wall were then closed in 2 layers utilizing heavy Vicryl suture in interrupted [id number] fashion. The skin was approximated with skin dick. Sterile dressings were applied. Chest tube was placed to -20 cm of water suction and the patient was uneventfully reversed from anesthesia and taken to recovery room in stable condition. There were no complications to the procedure. The patient tolerated the procedure well. Sponge, needle, and instrument counts were correct x2 at the end of the case. For estimated blood loss, please refer to the anesthetic record. We will proceed with routine postoperative care on an inpatient basis and of course lifelong urological followup. Sher Dumont MD [place]/[facility] /[id number]
== END 2019-03-30 20:17 | disposition home or self-care (01) | DRG 657 ==
LOC: OR 12:46 → ICU 16:00 → MED/SURG 03-29 14:05
PROVIDERS: ADMIT Internal Medicine; ATTEND Internal Medicine
PROC: 0GB30ZZ Excision of Right Adrenal Gland, Open Approach (ICD-10-PCS; 2019-03-26)
PROC: 0W9900Z Drainage of Right Pleural Cavity with Drainage Device, Open Approach (ICD-10-PCS; 2019-03-26)
PROC: 0TB00ZZ Excision of Right Kidney, Open Approach (ICD-10-PCS; principal; 2019-03-26 14:30)
DX: C64.1 Malignant neoplasm of right kidney, except renal pelvis (principal); J93.83 Other pneumothorax; C67.9 Malignant neoplasm of bladder, unspecified; R31.0 Gross hematuria; N40.1 Benign prostatic hyperplasia with lower urinary tract symptoms; N39.41 Urge incontinence; R35.1 Nocturia; Z80.42 Family history of malignant neoplasm of prostate; Z87.891 Personal history of nicotine dependence; D64.9 Anemia, unspecified; I10 Essential (primary) hypertension
CPT/HCPCS: 36415; 71045; 71046; 71250; 80048; 80053; 83735; 85025; 86850; 86900; 86920; 88305; 88307; 88309; 88329; 88342; 93005; J0690; J1100; J1170; J2001; J2150; J2270; J2405; J2543; J3010; J7030; J7050

== ENCOUNTER → 2019-05-21 | Outpatient (CLI) | payer OTHER ==
[~2019-05-21] MED LIST changes: +COLACE100 MG PO; +IOPAMIDOL 370 MG/ML 200 ML INFUS..BTL INJ ONE; +SODIUM CHLORIDE 0.9% 250ML 250 ML ONE; +TYLENOL WITH C1 EACH PO
[2019-05-21 13:13] LABS: BLOOD UREA NITROGEN 16 mg/dL (7-26); BUN/CREATININE RATIO 16 (6-25); CREATININE, SERUM 0.98 mg/dL (0.72-1.25); EST GLOMERULAR FILTRATION RATE > 60 ML/MIN (60-)
--- NOTE | 2019-05-21 14:25 | Diagnostic Imaging Report ---
EXAM: CT Abdomen and Pelvis WITHOUT and WITH contrast INDICATION: ^[id number] ^1330 ^GROSS HEMATURIA COMPARISON: None. TECHNIQUE: Abdomen and pelvis were scanned utilizing a multidetector helical scanner from the lung base to the pubic symphysis before and after administration of IV contrast. Coronal and sagittal reformations were obtained. CT Urogram protocol was performed. Scan was performed pre- and nephrogenic/excretory phase with a 10 minute split bolus in prone position. IV CONTRAST: 150 mL of Omnipaque 300 ORAL CONTRAST: None COMPLICATIONS: None RADIATION DOSE: Total DLP: 1478 mGy*cm Estimated effective dose: (DLP x 0.015 x size factor) mSv CTDIvol has been reviewed. It is below the limits set by the Radiation Protocol Committee (RPC). Dose modulation, iterative reconstruction, and/or weight based adjustment of the mA/kV was utilized to reduce the radiation dose to as low as reasonably achievable. FINDINGS: LINES and TUBES: None. LOWER THORAX: Unremarkable HEPATOBILIARY: No focal hepatic lesions. No biliary ductal dilation. GALLBLADDER: No radio-opaque stones or sludge. No wall thickening. SPLEEN: No splenomegaly. PANCREAS: No focal masses or ductal dilatation. ADRENALS: The right adrenal gland is poorly visualized. No left adrenal nodule. KIDNEYS/URETERS: Presumed surgical change of the right renal upper pole with adjacent perinephric inflammation, cortical thinning, and hypoenhancement. Thin subcapsular fluid collection at the surgical margin that measures up to 0.8 x 0.9 x 2.8 cm (image 68 series 6). This collection abuts the right hemidiaphragm. The left kidney is normal in appearance. No hydronephrosis, renal calculus, or collecting system filling defect. No discrete solid renal mass. GI TRACT: No abnormal distention, wall thickening, or evidence of bowel obstruction. Appendix is normal. PELVIC ORGANS/BLADDER: The prostate gland is mildly enlarged. The urinary bladder is mostly contracted and demonstrates moderate nonspecific circumferential wall thickening. LYMPH NODES: No lymphadenopathy. VESSELS: Unremarkable. PERITONEUM / RETROPERITONEUM: No free air or free fluid. Right retroperitoneal surgical clips suggestive of lymph node dissection. BONES: No acute osseous abnormality. SOFT TISSUES: Surgical changes of the right anterior abdominal wall. IMPRESSION: 1. Presumed partial nephrectomy surgical change of the right renal upper pole. Small nonspecific subcapsular fluid collection in the location of surgical change. Differential considerations include postoperative seroma, old hematoma, abscess, and contained urine leak. 2. No hydronephrosis, collecting system lesion, or discrete solid enhancing renal mass. 3. Wall thickening of the urinary bladder may reflect nonspecific inflammation. Signed by: Harley Cheng MD on 05/21/2019 2:22 PM
== END ==
LOC: CT 12:25
PROVIDERS: ATTEND Urology
DX: R31.0 Gross hematuria (principal)
CPT/HCPCS: 36415; 74178; 82565; 84520; J7050; Q9967

== ENCOUNTER → 2020-07-31 | Outpatient (CLI) | payer OTHER ==
[~2020-07-31] MED LIST changes: +SODIUM CHLORIDE 0.9% 200 ML ONE; -SODIUM CHLORIDE 0.9% 250ML 250 ML ONE; +SODIUM CHLORIDE 0.9% 50ML 50 ML ONE
[2020-07-31 08:31] LABS: BLOOD UREA NITROGEN 23 mg/dL (7-26); BUN/CREATININE RATIO 27 (6-25); CREATININE, SERUM 0.84 mg/dL (0.72-1.25); EST GLOMERULAR FILTRATION RATE > 60 ML/MIN (60-)
== END ==
LOC: CT 07:29
PROVIDERS: ATTEND Urology
DX: C64.1 Malignant neoplasm of right kidney, except renal pelvis (principal); C67.9 Malignant neoplasm of bladder, unspecified
CPT/HCPCS: 36415; 74178; 82565; 84520; J7050; Q9967

== ENCOUNTER → 2020-10-17 | Day surgery (SDC) | payer OTHER ==
[2020-10-14 09:43] LABS: BASOPHILS # (AUTO) 0.1 (0.0-0.1); BASOPHILS % 0.7 % (0.0-1.0); EOSINOPHILS # (AUTO) 0.4 (0.0-0.4); EOSINOPHILS % 5.7 % (0.0-6.0); HEMATOCRIT 44.6 % (38.2-49.6); HEMOGLOBIN 14.5 g/dL (14.0-18.0); LYMPHOCYTES # (AUTO) 0.6 (1.0-3.2); MEAN CORPUSCULAR HEMOGLOBIN 28.8 pg (28-32); MEAN CORPUSCULAR HGB CONC 32.5 g/dL (31-35); MEAN CORPUSCULAR VOLUME 88.7 fL (81-99); MONOCYTES # (AUTO) 0.7 (0.2-0.8); MONOCYTES % 9.1 % (4.4-11.3); NEUTROPHILS # (AUTO) 5.5 (2.1-6.9); NEUTROPHILS % 76.2 % (38.7-80.0); PLATELET COUNT 242 x10e3/uL (140-360); RED BLOOD COUNT 5.03 x10e6/uL (4.3-5.7); RED CELL DISTRIBUTION WIDTH 13.2 % (11.7-14.4)
[2020-10-14 10:15] LABS: ALBUMIN 3.7 g/dL (3.5-5.0); ANION GAP 11.5 mmol/L (8-16); CALCIUM 9.2 mg/dL (8.4-10.2); CREATININE, SERUM 0.96 mg/dL (0.72-1.25); POTASSIUM 4.5 mmol/L (3.5-5.1)
[~2020-10-17] MED LIST changes: +B&O 60MG R/S 60 MG SUPP PR ONE; +CEFTRIAXONE 1 GM VIAL ONE; +DEXAMETHASONE SOD PHOS INJ 4 MG/ML VIAL ONE; +EPHEDRINE SULFATE INJ 50 MG/ML VIAL ONE; +FENTANYL CITRATE/PF 100MCG/2 ML INJ ONE; +IOPAMIDOL 300MG/ML 50ML INFUS..BTL IV ONE; -IOPAMIDOL 370 MG/ML 200 ML INFUS..BTL INJ ONE; +KETAMINE HCL INJ 50 MG/ML 10 ML VIAL ONE; +LIDOCAINE HCL 2% LOCAL INJ 5 ML SDV VIAL INJ ONE; +MIDAZOLAM HCL 2 MG/2 ML VIAL ONE; +ONDANSETRON HCL INJ 2MG/ML 2ML 2 MG/ML VIAL ONE; +PHENYLEPHRINE HCL 1% 10 MG/ML VIAL ONE; +POVIDONE IODINE 0.05% 0.05 % ML PO ONE; +PROPOFOL IV EMULSION 10 MG/ML 20 ML VIAL ONE; +SEVOFLURANE INHAL SOLN 250 ML PEN BTL ONE; -SODIUM CHLORIDE 0.9% 200 ML ONE; +ZITHROMAX500 MG PO
[2020-10-17 10:34] VITALS: BP 148/90
== END | disposition home or self-care (01) ==
LOC: OR 06:39
PROVIDERS: ATTEND Urology
DX: N20.0 Calculus of kidney (principal); R31.29 Other microscopic hematuria; R31.0 Gross hematuria; N35.912 Unspecified bulbous urethral stricture, male; I10 Essential (primary) hypertension; F41.9 Anxiety disorder, unspecified; E78.5 Hyperlipidemia, unspecified; Z85.51 Personal history of malignant neoplasm of bladder; Z87.440 Personal history of urinary (tract) infections; Z87.442 Personal history of urinary calculi; Z87.891 Personal history of nicotine dependence; Z01.810 Encounter for preprocedural cardiovascular examination; Z01.812 Encounter for preprocedural laboratory examination; Z01.818 Encounter for other preprocedural examination; Z20.822 Contact with and (suspected) exposure to COVID-19; N21.0 Calculus in bladder
CPT/HCPCS: 36415; 50590; 52317; 71046; 74018; 74420; 80053; 83970; 84550; 85025; 88300; 93005; C1758; J0696; J1100; J2001; J2250; J2370; J2405; J2704; J3010; Q9967; U0002